=== PATIENT | male | born 1970 | race Caucasian/White ===

== ENCOUNTER 2018-07-17 23:25 | Emergency (ER) | payer OTHER ==
[~2018-07-17] VITALS: Ht 185.4 cm; Wt 87.5 kg
[2018-07-18] MEDS ORDERED: HYDROcodone-ACET 10/325MG TAB PO ONE
[2018-07-18] MEDS ORDERED: NEOMYCIN-POLYM-GRAM OPTH(EYE) SOL 10ML EACHEYE ONE (03:00)
[2018-07-18] MEDS ORDERED: TETRACAINE HCL 0.5% OPTH(EYE) SOLN 4ML EACHEYE ONE (03:00)
[2018-07-18 04:12] VITALS: BP 128/84
== END 2018-07-18 04:08 | disposition home or self-care (01) ==
LOC: ER 23:28
DX: H10.33 Unspecified acute conjunctivitis, bilateral (principal); Z88.1 Allergy status to other antibiotic agents